=== PATIENT | male | born 1995 | race Caucasian/White ===

== ENCOUNTER 2020-09-13 23:42 | Emergency (ER) | payer OTHER, SELFPAY ==
--- NOTE | ~2020-09-13 | XR_ITS ---
XR elbow LT min 3V 09/14/2020 00:38 INDICATION: Left elbow pain after injury PROCEDURE: 4 views left elbow COMPARISON: No prior studies for comparison. FINDINGS: Fracture, dislocation or subluxation is not identified. The soft tissues appear within norm al limits. No foreign bodies are identified. IMPRESSION: 1: NO ACUTE BONE OR JOINT ABNORMALITY IDENTIFIED. Reviewed, dictated and finalized at location A.
--- NOTE | ~2020-09-13 | XR_ITS ---
XR hand LT min 3V 09/14/2020 00:38 Indication: Left hand pain after injury Procedure: 3 views left hand Comparison: No prior studies for comparison. Findings: There is an oblique extra-articular fracture proximal aspect of the fifth metacarpal with m ild dorsal displacement and ventral angulation. Mild soft tissue swelling. No other fracture. No fore ign bodies. Impression: 1: Oblique extra-articular fracture proximal aspect of the left fifth metacarpal with mild dorsal dis placement and ventral angulation. Reviewed, dictated and finalized at location A. Impression: 1: Oblique extra-articular fracture proximal aspect of the left fifth metacarpa l with mild dorsal displacement and ventral angulation.
--- NOTE | ~2020-09-13 | XR_ITS ---
XR forearm LT 2V 09/14/2020 00:38 INDICATION: Left arm pain after injury PROCEDURE: 2 views left forearm COMPARISON: No prior studies for comparison. FINDINGS: Fracture, dislocation or subluxation is not identified. The soft tissues appear within norm al limits. No foreign bodies are identified. IMPRESSION: 1: NO ACUTE BONE OR JOINT ABNORMALITY IDENTIFIED. Reviewed, dictated and finalized at location A.
[2020-09-13 23:50] VITALS: BP 123/77; PULSE 93; RESP 20; TEMP 36.8; O2SAT 100
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
[2020-09-14 01:09] VITALS: BP 118/71; PULSE 72; RESP 18; O2SAT 99
== END 2020-09-14 01:19 | disposition home or self-care (01) ==
PROVIDERS: Emergency Provider Emergency Medicine
DX: S62.327A Displaced fracture of shaft of fifth metacarpal bone, left hand, initial encounter for closed fracture (principal); Y04.2XXA Assault by strike against or bumped into by another person, initial encounter; Y92.512 Supermarket, store or market as the place of occurrence of the external cause
CPT/HCPCS: 29125; 73080; 73090; 73130; 99284

== ENCOUNTER 2020-11-29 13:30 | Outpatient (RCR) | payer OTHER, SELFPAY ==
--- NOTE | 2020-11-13 11:34 | OTOPEVAL ---
OCCUPATIONAL THERAPY INITIAL EVALUATION 11/13/20 Roque presents to outpatient OT ~2 months following left 5th metacarpal shaft fracture that was treated conservatively. Evaluation today shows normal return of ROM with some residual weakness from immobilization and protected use. Instructed in special projects manager and wrist strengthening home program. Plan to have Roque follow up for a reassessment in 2 weeks to assess progress and to progress his HEP. Thank you for referring Roque Ignacio to [facility].? The patient is scheduled to be seen for therapy? 0-1x/week for 2 weeks. Please review, sign, date and return this plan of care VELIA. I agree with and certify that the following plan of care is medically necessary. Referring Physician Date Referring Provider: Oswald Martinez MD *OT Outpatient Evaluation Evaluation Information Problem Diagnosis Closed, minimally displaced fx of left 5th metacarpal shaft Subjective Information Patient reports his biggest Query Text:As Reported By Patient/ limitation is intermittent Family pain, particularly when working or weight bearing through the hand. States he is able to complete all ADL and work tasks, but does favor the right hand due to pain. Pain Assessment Timing of Pain Assessment Timing of Pain Assessment Assessment Pain Scale Pain Scale Used Numeric (1 - 10) Self Report Pain Assessment Left Hand(s) Reported Pain Level 0 Pain Frequency Intermittent Lowest Pain Intensity 0 Greatest Pain Intensity 5 Pain Score Pain Score 0: Self Report Upper Extremity Range of Motion Wrist Range of Motion Bilateral Reason Not Measured WNL/Left,WNL/Right Wrist Range of Motion Comments ROM is intact and symmetrical. Finger Range of Motion Left Reason Not Measured WNL/Left Finger Range of Motion Comments Lumbricals, interossei - intact/WNL Hook fist, full fist - intact/WNL Thumb Range of Motion Left Reason Not Measured WNL/Left Upper Extremity Muscle Strength Testing Wrist Strength Right Wrist Flexion Strength 5 Normal Wrist Extension Strength 5 Normal Wrist Radial Deviation 5 Normal Wrist Ulnar Deviation 5 Normal Left Wrist Flexion Strength 4 Good Wrist Extension Strength 4 Good Wrist Radial Deviation 4 Good Wrist Ulnar Deviation 4 Good Hand Powder Worker Tnt/Pinch Strength Assessment Hand Left Powder Worker Tnt Strength (lbs) 62 Hand Powder Worker Tnt/Pinch Strength Comments Norm: 115 lbs. Right Powder Worker Tnt Strength (lbs) 123 Hand Powder Worker Tnt/Pinch Strength Comments Norm: 120 lbs. Upper Extremity Exercise Wrist Exercise Left Wrist Flexion With 2# dumbbe
--- NOTE | 2020-11-29 13:52 | OTOPEVAL ---
OCCUPATIONAL THERAPY RE-EVALUATION AND D/C SUMMARY 11/29/20 OT re-evaluation completed today. Patient has made excellent progress with improved strength and less pain which has translated into increased functional use of the left hand. Upgraded his putty HEP today and will be discharging with goals met. Thank you for referring Roque Ignacio to [facility].? Please review, sign, date and return this D/C Note VELIA. I agree with and certify that the following plan of care is medically necessary. Referring Physician Date Referring Provider: Oswald Martinez MD *OT Outpatient [id number] Start: 11/13/20 10:41 Problem Diagnosis Closed, minimally displaced fx of left 5th metacarpal shaft Subjective Information Patient reports that his pain Query Text:As Reported By Patient/ is typically 0/10. He reports Family no longer having pain with ADLs or work tasks. Only some residual pain (rated at 2/10) with weight bearing through the hand. Overall he is pleased with his progress. Pain Assessment Timing of Pain Assessment Timing of Pain Assessment Re-assessment Pain Scale Pain Scale Used Numeric (1 - 10) Self Report Pain Assessment Left Hand(s) Reported Pain Level 0 Lowest Pain Intensity 0 Greatest Pain Intensity 2 Pain Score Pain Score 0: Self Report Upper Extremity Range of Motion Finger Range of Motion Left Reason Not Measured WNL/Left Finger Range of Motion Comments Lumbricals, interossei - intact/WNL Hook fist, full fist - intact /WNL Upper Extremity Muscle Strength Testing Wrist Strength Left Wrist Flexion Strength 4+ Good + Wrist Extension Strength 5 Normal Wrist Radial Deviation 5 Normal Wrist Ulnar Deviation 5 Normal Wrist Strength Comments Wrist improved from 4/5 Hand Sociology Adjunct Instructor/Pinch Strength Assessment Hand Left Sociology Adjunct Instructor Strength (lbs) 83 Hand Sociology Adjunct Instructor/Pinch Strength Comments Sociology Adjunct Instructor improved from 62 lbs. OT Clinical Summary OT Clinical Summary OT re-evaluation completed today. Patient has made excellent progress with improved strength and less pain which has translated into increased functional use of the left hand. Upgraded his putty HEP today and will be discharging with goals met. OT Services Indicated Yes Rehabilitation Potential Excellent Potential Barriers to Goal Achievements None
== END 2020-11-29 15:48 | disposition home or self-care (01) ==
LOC: ANHOT 13:30
PROVIDERS: Visit Provider Plastic Surgery
DX: S62.327D Displaced fracture of shaft of fifth metacarpal bone, left hand, subsequent encounter for fracture with routine healing (principal)
CPT/HCPCS: 97110; 97165